=== PATIENT | female | born 1965 | race Caucasian/White ===

== ENCOUNTER 2017-11-05 13:10 | Outpatient (CLI) | payer MEDICARE ==
--- NOTE | 2017-11-05 13:38 | RAD ---
PA AND LATERAL CHEST: History: Dyspnea. FINDINGS: The heart size is normal. The lungs are well expanded without confluent areas of consolidation, pneum othorax, or pleural effusions. There are mild degenerative changes in the spine. IMPRESSION: No radiographic evidence of acute cardiopulmonary process. POS: [facility]
== END 2017-11-05 13:11 | disposition home or self-care (01) ==
LOC: RAD 13:10
PROVIDERS: ATTEND Internal Medicine Pulmonary Disease
DX: R06.00 Dyspnea, unspecified (principal); J44.9 Chronic obstructive pulmonary disease, unspecified
CPT/HCPCS: 71046